=== PATIENT | male | born 2000 | race Caucasian/White ===

== ENCOUNTER 2023-11-01 10:32 | Emergency (ER) | payer OTHER, SELFPAY ==
[2023-11-01 10:41] VITALS: BP 129/80; PULSE 96; RESP 18; TEMP 37.6; O2SAT 98
--- NOTE | 2023-11-01 10:49 | ED.URI ---
HPI - URI/Sore Throat General Chief Complaint: Upper Respiratory Infection Stated Complaint: Cough/Chest Congestion/Body Ache History of Present Illness HPI Narrative: Patient presents with a cough productive at times. No shortness of breath no chest pain. Patient states he started with fever and body aches 5 days ago and now has settled in his chest. 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 Patient is taking Zyrtec daily for his symptoms. Related Data Allergies Allergy/AdvReac Type Severity Reaction Status Date / Time peanut Allergy Headache Verified 11/01/23 10:46 sesame seed Allergy Headache Verified 11/01/23 10:46 Review of Systems Review of Systems: CONSTITUTIONAL: Denies chills, or sweats. Reports fever and generalized body aches EYES: Denies visual changes, redness, or discharge. ENT: Denies otalgia. Reports nasal congestion runny nose and sore throat CARDIOVASCULAR: Denies chest pain, palpitations, or edema. RESPIRATORY: Denies dyspnea. Reports occasional cough GASTROINTESTINAL: Denies abdominal pain, nausea, vomiting, or diarrhea. GENITOURINARY: Denies dysuria or hematuria. SKIN: Denies rash or itching. MUSCULOSKELETAL: Denies back pain, joint pain, or myalgia. Reports generalized body aches NEUROLOGIC: Denies headache, numbness, or weakness. PSYCHIATRIC: Denies anxiety or depression. PMFSH Comments At time of signature, agree with nursing past medical, surgical, social and family history. There is no relevant family history pertinent to the presenting complaint Exam Narrative: The patient is a well-developed, well-nourished in no acute distress. SKIN: Skin is warm and dry without erythema, swelling or exudate. There is good turgor. No tenting. HEAD: Atraumatic. Normocephalic. No temporal or scalp tenderness. EYES: Moist and bright. Sclera and conjunctivae normal. No discharge. PERRLA. Extraocular motions intact. Gross visual acuity intact. EARS: Pinna is normal shape and contour. Clear external auditory canals. TM pearly cummings with good cone of light, no erythema or suppuration. Bilateral cerumen noted no gross hearing deficit. NOSE: pink, moist mucosa with good air movement. Clear rhinorrhea without nasal flaring. Septum midline. Mild maxillary tenderness and pressure Mouth: moist mucous membranes. THROAT; mild erythema noted to posterior oropharynx with moderate postnasal drainage. Without exudate or ulceration.. Uvula midline. Normal movement of soft palate. NECK: Supple and nontender with full range of motion without discomfort. No meningeal signs. LUNGS: Equal and bilateral breath sounds without wheezes, rales or rhonchi. CHEST: The chest wall is without retractions or use of accessory muscles. HEART: Has a regular rate and rhythm without murmur, gallops, click or rub. ABDOMEN: Soft, nontender with positive active bowel sounds. No rebound tenderness. EXTREMITIES: Without cyanosis, clubbing or edema. Equal 2+ distal pulses and 2 second capillary refill noted. NEUROLOGIC: alert, active, . The patient moves all extremities with normal muscle strength. Normal muscle tone is noted. Normal coordination is noted. NO focal neurological findings noted. Course Course Level of Care: Express Care Visit Vital Signs Vital signs: Vital Signs Temperature 37.6 C 11/01/23 10:41 Pulse Rate 96 11/01/23 10:41 Respiratory Rate 18 11/01/23 10:41 Blood Pressure 129/80 11/01/23 10:41 Pulse Oximetry 98 11/01/23 10:41 Oxygen Delivery Room Air 11/01/23 10:41 Temperature 37.6 C 11/01/23 10:41 Pulse Rate 96 11/01/23 10:41 Respiratory Rate 18 11/01/23 10:41 Blood Pressure 129/80 11/01/23 10:41 Pulse Oximetry 98 11/01/23 10:41 Oxygen Delivery Room Air 11/01/23 10:41 Discharge Plan Discharge Clinical Impression: Sinusitis, Bronchitis Patient Disposition: Home, Self-Care Condition: Stable Instructions: Antibiotic Form Additional Instructions:
== END 2023-11-01 10:58 | disposition home or self-care (01) ==
PROVIDERS: Emergency Provider Nurse Practitioner Family; PCP Nurse Practitioner Family
DX: J32.9 Chronic sinusitis, unspecified (principal); J40 Bronchitis, not specified as acute or chronic
CPT/HCPCS: 99203; G0463